=== PATIENT | female | born 1980 | race Caucasian/White ===

== ENCOUNTER 2018-01-02 10:38 | Day surgery (SDC) | payer OTHER ==
[2018-01-02] MEDS ORDERED: LACTATED RINGERS 1,000 ML IV ONE (11:22)
[2018-01-02 11:43] LABS: HCG UR QUAL NEGATIVE
[2018-01-02] MEDS ORDERED: fentaNYL 100 MCG/2 ML VIAL IVP ONE (11:46)
[2018-01-02] MEDS ORDERED: MIDAZOLAM 2 MG/2 ML VIAL IVP ONE (11:46)
[2018-01-02 13:06] VITALS: BP 102/47
--- NOTE | 2018-01-02 14:58 | PROCEDURE REPORT ---
DATE OF SERVICE: 01/02/2018 Physician: Dionicio Yanez MD PROCEDURE PERFORMED: Colonoscopy . ENDOSCOPIST: Dionicio Yanez MD PREMEDICATIONS 1. Fentanyl 150 mcg. 2. Versed 8 mg IV titration. TOTAL SEDATION TIME: 20 minutes. DESCRIPTION: After informed consent was obtained, the patient was placed in left lateral decubitus position. The video colonoscope was introduced through the rectum and slowly advanced to the cecum. On slow withdrawal, mucosa was carefully examined. The scope was removed. The patient tolerated the procedure well. BLOOD LOSS: None. COMPLICATIONS: None. FINDINGS 1. [id number] internal hemorrhoids seen on retroflexion. 2. Quite tortuous colon. 3. Otherwise negative colonoscopy to cecum. The patient will merely monitor her hematochezia, but I think it is all from internal hemorrhoids. She will try to keep her stools soft and easy to pass. She will call if she needs any additional help. TD: 01/02/2018 14:56
== END 2018-01-02 10:39 | disposition home or self-care (01) ==
LOC: SDS 10:38
PROVIDERS: ATTEND Internal Medicine
PROC: 0DJD8ZZ Inspection of Lower Intestinal Tract, Via Natural or Artificial Opening Endoscopic (ICD-10-PCS; principal; 2018-01-02 12:00)
DX: K92.1 Melena (principal); K64.8 Other hemorrhoids
CPT/HCPCS: 45378; 81025; J7120

== ENCOUNTER 2019-12-15 09:55 | Outpatient (CLI) | payer OTHER ==
--- NOTE | 2019-12-15 11:21 | SLEEP CARE CONSULTATION ---
Information from patient questionnaire entered by Candi Bruner. I have reviewed and concur with the information entered by Candi Bruner. This document represents the service I personally performed and the decisions made by me, Chapin Vasquez MD, [facility]. History of Present Illness Reason for Visit: New patient Chief Complaint: reports: Insomnia, Unrefreshed sleep, Snoring, Excessive daytime sleepiness, Observed pauses in breathing, Fatigue, Frequent awakenings at night Duration of Symptoms: over a year Usual bedtime: [id number] Time it takes to fall asleep: 15-20 minutes/ a book Snores at night: Yes Observed to quit breathing while asleep: Yes Sleeps alone due to snoring: No Number of times waking at night: 2-3 Reasons for waking at night: reports: Snoring, Bathroom Toss, Turn, or Twitch while sleeping: No Recalls having dreams: No Usually gets out of bed at: 0500 workday, 0700 weekend Feels refreshed in the morning: No Morning headache: No Sleepy or fatigued during the day: Yes Ever fallen asleep while driving: No Takes day naps: Yes Dreams during day naps: No Prior sleep studies: No Additional HPI information: I had the pleasure of seeing Ms. Griffin today regarding the possibility of her having a sleep disorder. As you know, she is a 39 year old lady who complains of loud snore, observed apneas, frequent awakenings, unrefreshed sleep, persistent fatigue, and excessive daytime sleepiness for the past year. The patient tells me that she normally goes to bed around 9 - 10 pm, and it takes her approximately 15 - 20 minutes to fall asleep. She has been told that she snores loudly and irregularly at night. She has also been observed to stop breathing in her sleep. Her spouse can still sleep in the same bed. She can recall waking up on the average of 2 - 3 times during the night. Most of the time she wakes up because of having to use the bathroom. She has awakened occasionally because of her own snoring, choking, and having to gasp for air. There is not a lot of tossing and turning in her sleep. No somniloquy (sleep talking) or somnambulism (sleep walking). Generally there is no recollection of dreams. In the morning she usually gets up out of the bed around 5 - 7 a.m. not feeling refreshed nor rested. She usually does not have a morning headache. During the day she complains of feeling sleepy and fatigued. Her score on [place] Sleepiness Scale is 15 out of 24. She has never fallen asleep while driving nor has had any accident due to sleepiness. She usually takes naps during the day. Upon falling asleep during the day she denies having vivid dreams. She has never had sleep paralysis, experienced cataplexy but reports symptoms of restless leg syndrome. She also reports having impaired concentration during the day. Subjective Initial [place] Sleepiness Scale score: 15 Past Medical History Past Medical History: reports: Anxiety, Depression, Other (essential tremors) Social History The patient's occupation is active . Patient is and lives in [place]. Have you smoked in the past 12 months: Yes Cigarettes per day (20/pack): 7 (1/3) Years of smokin Smoking Pack Years: 0.3 Alcohol use: Yes Alcohol amount and frequency: on occassion Caffeine use: Yes Caffeine amount and frequency: 2-3 cups/day Family History Family history of sleep disordered breathing: Yes Allergies and Home Medications Drug allergies reviewed: Yes (NKDA) Home medication list reviewed: Yes (fluoxetine, propranolo, topiramate) Review of Systems Weight gain over past 5 years: 20-30 Cardiovascular: reports: palpitations Respiratory: reports: shortness of breath Gastrointestinal: reports: heartburn, abdominal pain Urinary: reports: incontinence Neurological: reports: gait or balance problems, other (tremors) Psychiatric: reports: anxiety, depression Ear/Nose/Throat: reports: wisdom teeth removed Endocrine: reports: sluggishness, too hot or cold, unexplained weakness Musculoskeletal: reports: joint pain, neck pain, back pain Immunologic: denies: sneezing, rash, itching, allergies to food or environment, other Physical Exam Vital signs obtained and entered by: Dr. Vasquez Blood Pressure: 104/68 Cuff size: regular Heart Rate: 63 O2 Saturation: 98 Height: 5 ft 4 in Weight: 182 lb Body Mass Index: 31.2 BMI Classification: Obese Neck circumference: 14 Mood/affect: normal HEENT: No craniofacial malformation Nostrils: patent to airflow Turbinates: normal Septum: midline Mouth and throat: narrow oropharynx Soft palate: long Hard palate: normal Uvula: normal Uvula visualization: 50% Mallampati Class II Tongue: normal in size Tonsils: small Chin and jaw: normal size and position Neck: normal w/o lymphadenopathy or thyromegaly Heart: regular rate and rhythm Lungs: clear bilaterally Abdomen: soft, non-tender Extremities: no edema or clubbing Neurologic: intact, no focal deficits Impression and Plan IMPRESSION: 1. Obstructive Sleep Apnea-Hypopnea Syndrome, as suggested by history of loud and irregular snoring, observed cessation of breath while asleep, frequent awakenings during the night, unrefreshed sleep, cognitive impairment, and daytime hypersomnolence. Narrow oropharynx and obesity are common predisposing factors for obstructive sleep apnea-hypopnea syndrome. Pathophysiology of sleep-disordered breathing was discussed. I recommend proceeding to polysomnography to confirm the diagnosis and to assess severity. I informed the patient of what the sleep studies involve and after some discussion, she agreed to proceed. Plan: 1. Schedule an in-laboratory polysomnography. 2. Avoid long distance driving or when feeling sleepy. 3. Avoid alcohol, sedative and muscle relaxant around bedtime. 4. Attempt to lose weight. 5. Return in 1 to 2 weeks after the study to discuss results and initiate therapy I spent 100% of this visit face to face with the patient with greater than 50% of this was spent time counseling the patient and coordination of care.
[2019-12-15 11:22] VITALS: BP 104/68
== END 2019-12-15 09:56 | disposition home or self-care (01) ==
LOC: SC 09:55
PROVIDERS: ATTEND Internal Medicine Pulmonary Disease
DX: R06.83 Snoring (principal); R06.81 Apnea, not elsewhere classified; G47.8 Other sleep disorders; R41.89 Other symptoms and signs involving cognitive functions and awareness; G47.10 Hypersomnia, unspecified; E66.9 Obesity, unspecified; Z68.31 Body mass index [BMI] 31.0-31.9, adult
CPT/HCPCS: 99203; 99212

== ENCOUNTER 2020-01-01 19:40 | Outpatient (CLI) | payer OTHER | END 2020-01-01 19:41 | disposition home or self-care (01) | LOC: SC 19:40 | PROVIDERS: ATTEND Internal Medicine Pulmonary Disease | DX: R06.83 Snoring (principal); G47.63 Sleep related bruxism; G47.10 Hypersomnia, unspecified; R06.81 Apnea, not elsewhere classified | CPT/HCPCS: 95810 ==

== ENCOUNTER 2020-02-09 13:54 | Outpatient (CLI) | payer OTHER ==
--- NOTE | 2020-02-09 11:32 | SLEEP CARE CONSULTATION ---
Information from patient questionnaire entered by Candi Bruner. I have reviewed and concur with the information entered by Candi Bruner. This document represents the service I personally performed and the decisions made by me, Chapin Vasquez MD, [facility]. History of Present Illness Service Date and Time: 02/09/2020 1100 Initial [place] Sleepiness Scale score: 15 Additional HPI information: To minimize the risk of COVID-19 exposure, the patient has requested and consented to this video telemedicine visit. The patient also agrees to having her insurance billed. HPI: Ms. Griffin was called for follow up of the sleep study she had on 01/01/2020. The polysomnography showed that the patient had normal sleep efficiency. The sleep architecture was normal as well. Respiratory monitoring showed no significant sleep disordered breathing (AHI = 1.3) or hypoxia (zora oxygen saturation of 90%). The patient slept mostly supine (supine AHI = 1.8; non- supine = 0.00). Snore was moderate to loud in intensity. There was no significant periodic leg movement of sleep. Cardiac rhythm was normal sinus rhythm without significant arrhythmia. The patient had bruxism. The patient was informed of these findings. I explained to her that the sleep study was normal. Her main complaint is fatigue. Allergies and Home Medications Drug allergies reviewed: Yes Home medication list reviewed: Yes Review of Systems Review of systems same as previous: Yes Physical Exam Height: 5 ft 4 in Impression and Plan IMPRESSION: 1. Primary Snore (ICD-10 R06.83), light to loud, but no significant sleep disordered breathing. Not treatment at this time. 2. Fatigue, not explained by sleep disorders. She does have history of depression. Further workup will be deferred to her primary care provider. PLAN: 1. Return to the sleep clinic on as needed basis. Visit Type: Telehealth Video Video Type: [facility] Location of Provider: Home Patient agrees and consents to this telehealth visit type: Yes Time Spent with Patient (minutes): 15 Provider Statement: I spent 100% of the Telehealth Video Call with the patient with greater than 50% spent counseling the patient and coordination of care.
== END 2020-02-09 13:55 | disposition home or self-care (01) ==
LOC: SC 13:54
PROVIDERS: ATTEND Internal Medicine Pulmonary Disease
DX: R06.83 Snoring (principal); G47.10 Hypersomnia, unspecified; G47.8 Other sleep disorders; R06.81 Apnea, not elsewhere classified; R53.83 Other fatigue
CPT/HCPCS: 99212; 99213

== ENCOUNTER 2020-03-23 16:51 | Outpatient (CLI) | payer OTHER ==
--- NOTE | 2020-03-24 04:30 | MRI Report ---
Reason: PARAESTHESIA OF SKIN Procedure Date: 03/23/2020 Accession Number: [id number] / [id number] Procedure: MRI - Cervical Spine W/O CPT Code: Final Report FULL RESULT: EXAM: MRI CERVICAL SPINE WITHOUT CONTRAST EXAM DATE: 03/23/2020 06:01 PM. CLINICAL HISTORY: Chronic bilateral arm and hand numbness. COMPARISONS: None. TECHNIQUE: Multiplanar, multisequence T1-weighted and fluid-sensitive sequences of the cervical spine without contrast. Other: None. FINDINGS: Neurologic Structures: The visualized posterior fossa structures are unremarkable. No signal abnormality in the visualized spinal cord. Alignment: Retrolisthesis at C5-C6 measures 1-2 mm. Bone Marrow: No gross fractures or bone lesions. No marrow edema. Interspace Levels/Facets: C1-C2: Unremarkable. C2-C3: Unremarkable. C3-C4: Left-sided facet arthropathy results in mild left foraminal narrowing. The spinal canal and right foramen are patent. C4-C5: A minimal disk bulge is present resulting in mild left foraminal narrowing. The spinal canal and right foramen are patent. C5-C6: A posterior disk osteophyte complex results in mild spinal canal stenosis. There is mild bilateral foraminal narrowing due to uncovertebral hypertrophy. C6-C7: Mild bilateral uncovertebral hypertrophy is present without spinal canal or foraminal stenosis. A minimal central protrusion is also seen. C7-T1: Unremarkable. Musculature: Normal. No edema or fatty atrophy. Other: The paravertebral and prevertebral soft tissues are normal. IMPRESSION: 1. Normal cervical spinal cord signal intensity. 2. No abnormal bone marrow edema. 3. Mild degenerative changes are noted in the mid cervical spine but there is no high-grade spinal canal or foraminal stenosis. RADIA
== END 2020-03-23 16:52 | disposition home or self-care (01) ==
LOC: DI 16:51
PROVIDERS: ATTEND General Practice
DX: M43.12 Spondylolisthesis, cervical region (principal); M47.812 Spondylosis without myelopathy or radiculopathy, cervical region; M50.321 Other cervical disc degeneration at C4-C5 level; M50.223 Other cervical disc displacement at C6-C7 level; M48.02 Spinal stenosis, cervical region
CPT/HCPCS: 72141

== ENCOUNTER 2020-07-02 15:34 | Outpatient (CLI) | payer OTHER ==
--- NOTE | 2020-07-07 10:01 | Mammography Report ---
BILATERAL DIGITAL SCREENING MAMMOGRAM: 07/02/2020 CLINICAL: Routine screening. Comparison is made to exam dated: 03/20/2019 mammogram - [facility]. The tissue of neeraj th breasts is heterogeneously dense. This may lower the sensitivity of mammography. No significant masses, calcifications, or other findings are seen in either breast. There has been no significant interval change. IMPRESSION: NEGATIVE There is no mammographic evidence of malignancy. A 1 year screening mammogram is recommended. This exam was interpreted at Station ID: [id number]. NOTE: For mammograms, a report in lay terms will be sent to the patient. Approximately 15% of breast malignancies will not be visualized mammographically. In the management of a palpable breast mass, a negative mammogram must not discourage biopsy of a clinically suspicious lesion. Electronically Signed By: Dwight alas/chris:07/06/2020 15:54:16 ACR BI-RADS Category 1: Negative [id number] PARENCHYMAL PATTERN: (D) - The breast(s) demonstrate(s) heterogeneously dense fibroglandular pamela jimenez. BI-RADS CATEGORY: (1) - 1 RECOMMENDATION: (ANNUAL) - Recommend routine annual screening mammography. [id number] 1 year screening LATERALITY: (B)
== END 2020-07-02 15:35 | disposition home or self-care (01) ==
LOC: DI.N 15:34
DX: Z12.31 Encounter for screening mammogram for malignant neoplasm of breast (principal)
CPT/HCPCS: 77067

== ENCOUNTER 2020-09-10 16:55 | Emergency (ER) | payer OTHER ==
--- NOTE | 2020-09-10 17:24 | ED Physician Documentation ---
History of Present Illness - Stated complaint Stated Complaint: RT FINGER INJ - History obtained from History obtained from: Patient - History of Present Illness Timing: How many hours ago (2) Pain level max: 0 Pain level now: 0 - Additonal information Additional information: 40-year-old female presents to the emergency department after smashing her index finger and middle finger in a garage door today. Worse with movement, better with rest. 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, Other HEENT: Other - Present Medications Home Medications: Ambulatory Orders Medication Instructions Recorded Confirmed Bcp 1 DAILY 08/06/15 08/06/15 Fluoxetine HCl [Prozac] 1 DAILY 08/06/15 08/06/15 - Allergies Allergies/Adverse Reactions: Allergies Allergy/AdvReac Type Severity Reaction Status Date / Time No Known Drug Allergies Allergy Verified 09/10/20 17:25 - Social History Does the pt smoke?: No Smoking Status: Never smoker Does the pt drink ETOH?: Yes Does the pt have substance abuse?: No - Immunizations Immunizations are current?: Yes PD ED PE NORMAL - Vitals Vital signs reviewed: Yes - General General: Alert and oriented X 3, No acute distress - HEENT HEENT: Moist mucous membranes - Derm Derm: Warm and dry - Extremities Extremities: Other (R hand - 2nd and 3rd digit mild TTP over the distal aspect, small subungual to the middle digit) - Neuro Neuro: Alert and oriented X 3 Results - Vitals Vitals: Vital Signs - 24 hr 09/10/20 09/10/20 17:06 18:48 Temperature 98.6 C H 36.9 C Heart Rate 49 L 48 L Respiratory 18 16 Rate Blood Pressure 108/76 106/73 O2 Saturation 100 100 Oxygen O2 Source Room air - Rads (name of study) R hand xray Radiology: Prelim report reviewed, EMP read contemporaneously, See rad report (Intact right hand) Procedures - General procedure General procedure: subungual hematoma drained from the distal 3rd digit. electrocautery used. tolerated well. 1% buffered lidocaine used to anesthetize the digit with a digital block. PD MEDICAL DECISION MAKING - ED course Complexity details: reviewed results, re-evaluated patient, considered differential, d/w patient ED course: Subungual hematoma drained. Tolerated well. No findings on xray. Using the hand well. Patient counseled regarding signs and symptoms for which I believe and urgent re-evaluation would be necessary. Patient with good understanding of and agreement to plan and is comfortable going home at this time This document was made in part using voice recognition software. While efforts are made to proofread this document, sound alike and grammatical errors may occur. Departure - Departure Disposition: 01 Home, Self Care Clinical Impression: Subungual hematoma of digit of hand Qualifiers: Encounter type: initial encounter Qualified Code(s): S60.10XA - Contusion of unspecified finger with damage to nail, initial encounter Crush injury to finger Qualifiers: Encounter type: initial encounter Qualified Code(s): S67.10XA - Crushing injury of unspecified finger(s), initial encounter Condition: Good Instructions: ED Crush Injury Finger No Fx, ED Hematoma Subungual Follow-Up: Murali Clarek MD [Primary Care Provider] - Within 1 week Comments: Follow-up with your doctor in 1 week for recheck. Return if you worsen. Discharge Date/Time: 09/10/20 19:02
--- NOTE | 2020-09-10 18:14 | XRAY Report ---
PROCEDURE: Hand 3 View RT INDICATIONS: R hand crush injury TECHNIQUE: 3 views of the hand(s) acquired. COMPARISON: None FINDINGS: Bones: No fractures or dislocations. No suspicious bony lesions. Soft tissues: No suspicious soft tissue calcifications. IMPRESSION: Intact right hand. No visible fracture. Reviewed by: Aiyana Mckeon MD on 09/10/2020 6:12 PM PST Approved by: Aiyana Mckeon MD on 09/10/2020 6:12 PM PST Station ID: [id number]
[2020-09-10] MEDS ORDERED: BUFFERED LIDOCAINE 10 ML SYRINGE SUBQ STA (18:18)
[2020-09-10 18:49] VITALS: BP 106/73
== END 2020-09-10 19:02 | disposition home or self-care (01) ==
LOC: ED 16:55
DX: S60.131A Contusion of right middle finger with damage to nail, initial encounter (principal); S67.190A Crushing injury of right index finger, initial encounter; W23.0XXA Caught, crushed, jammed, or pinched between moving objects, initial encounter
CPT/HCPCS: 11740; 99283

== ENCOUNTER 2023-11-20 13:28 | Emergency (ER) | payer OTHER ==
[2023-11-20 13:42] VITALS: O2SAT 100
--- NOTE | 2023-11-20 13:57 | ED Physician Documentation ---
History of Present Illness - Stated complaint Stated Complaint: DOG BITES/HANDS - Chief complaint Chief Complaint: Laceration - History obtained from History obtained from: Patient - History of Present Illness Timing: Today Pain level max: 4 Pain level now: 4 - Additonal information Additional information: Patient is a 43-year-old female who presents to the emergency department with dog bites to both hands. She has a laceration to the dorsum of the right hand. There are 2 small puncture wounds on the left thumb. She believes her tetanus shot is up-to-date. Worse with movement, better with rest. No allergies to medications. No fevers. No chills. No weakness. No numbness or tingling. 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 HEENT: Other - Present Medications Home Medications: Ambulatory Orders Medication Instructions Recorded Confirmed Amox/Clav 875/125 [Augmentin] 1 tab PO Q12H #14 tablet 11/20/23 FLUoxetine [PROzac] 10 mg PO DAILY 11/20/23 11/20/23 Fluoxetine HCl [Prozac] 20 mg PO DAILY 11/20/23 11/20/23 Primidone 50 mg PO HS 11/20/23 11/20/23 Propranolol [Inderal] 40 mg PO BID 11/20/23 11/20/23 Topiramate 50 mg PO BID 11/20/23 11/20/23 buPROPion HCL [Wellbutrin Xl] 300 mg PO DAILY 11/20/23 11/20/23 - Allergies Allergies/Adverse Reactions: Allergies Allergy/AdvReac Type Severity Reaction Status Date / Time No Known Drug Allergies Allergy Verified 11/20/23 13:30 - Social History Does the pt smoke?: No Smoking Status: Never smoker Does the pt drink ETOH?: Yes Does the pt have substance abuse?: No - Immunizations Immunizations are current?: Yes - POLST Patient has POLST: No PD ED PE NORMAL - Vitals Vital signs reviewed: Yes - General General: Alert and oriented X 3, No acute distress - HEENT HEENT: Moist mucous membranes - Derm Derm: Warm and dry - Extremities Extremities: Other (laceration dorsum of the R hand, 1cm. no tendon involvement. NVI. punctures of the L thumb, NVI.) - Neuro Neuro: Alert and oriented X 3 - Psych Psych: Normal mood, Normal affect Results - Vitals Vitals: Vital Signs - 24 hr 11/20/23 11/20/23 13:30 14:44 Temperature 36.2 C L 36.5 C Heart Rate 61 60 Respiratory 16 16 Rate Blood Pressure 116/68 114/66 O2 Saturation 100 100 Oxygen O2 Source Room air Procedures - Laceration (location) R hand dorsum Length in cm: 1 Wound type: Linear, Into subcut fat, Clean Neurovascular status: Sensory intact, Motor intact, Vascular intact Tendon involvement: Tendon intact Anesthesia: Lidocaine 1% Wound preparation: Chlorhexadine, Irrigated copiously NS, Wound explored Skin layer closure: Nylon, Interrupted, Size #-0 - enter number (4), Sutures - enter # (1) Other: Patient tolerated well, No complications, Neurovascular intact, Dressing applied, Tetanus UTD PD Medical Decision Making - ED course Complexity details: considered differential, d/w patient, d/w family ED course: Patient status post dog bites to both hands, the left thumb bites do not require any suturing. There is a gaping 1 cm wound to the dorsum of the right hand. No bony tenderness. No deformity. No indication for x-ray. A suture was placed. Will place on Augmentin for home. She states her tetanus shot is up-to-date. Patient counseled regarding signs and symptoms for which I believe and urgent re-evaluation would be necessary. Patient with good understanding of and agreement to plan and is comfortable going home at this time This document was made in part using voice recognition software. While efforts are made to proofread this document, sound alike and grammatical errors may occur. Departure - Departure Disposition: 01 Home, Self Care Clinical Impression: Dog bite of hand Qualifiers: Encounter type: initial encounter Laterality: unspecified laterality Qualified Code(s): S61.459A - Open bite of unspecified hand, initial encounter Condition: Good Instructions: ED Bite Dog, ED Laceration Hand Follow-Up: your,doctor in 1 week for stitch removal [Other] Prescriptions: Amox/Clav 875/125 [Augmentin] 1 tab PO Q12H #14 tablet Comments: Your prescription was sent to [facility] in [place]. Take all antibiotics until gone. Return if you notice redness, swelling or drainage from the wound. Your sutures should be removed in about a week with your PCP. Forms: PCP List Discharge Date/Time: 11/20/23 14:44
[2023-11-20] MEDS ORDERED: BACITRACIN ZINC OINT 1 PACKET TOP STA (14:20)
[2023-11-20 14:48] VITALS: BP 114/66
== END 2023-11-20 14:44 | disposition home or self-care (01) ==
LOC: ED 13:28
DX: S61.051A Open bite of right thumb without damage to nail, initial encounter (principal); W54.0XXA Bitten by dog, initial encounter
CPT/HCPCS: 12001; 99282; A9270

== ENCOUNTER 2024-01-14 10:57 | Day surgery (SDC) | payer OTHER ==
[2024-01-14] MEDS: LACTATED RINGERS 1,000 ML IV ONE (11:09)
[2024-01-14 11:28] LABS: HCG UR QUAL NEGATIVE
--- NOTE | 2024-01-14 11:47 | ANESTHESIA ---
Pre-Anesthesia VS, & Labs - Diagnosis screening - Procedure colonoscopy Height: 5 ft 5 in Weight (kg): 76.5 kg Body Mass Index: 28.0 BMI Classification: Overweight - NPO Other (prep as directed) - Is Patient ?: No Home Medications and Allergies Fluoxetine HCl [Prozac] 30 mg PO DAILY 11/20/23 Primidone 50 mg PO HS 11/20/23 Propranolol [Inderal] 40 mg PO BID 11/20/23 Topiramate 50 mg PO BID 11/20/23 buPROPion HCL [Wellbutrin Xl] 300 mg PO DAILY 11/20/23 Allergies/Adverse Reactions: Allergies Allergy/AdvReac Type Severity Reaction Status Date / Time No Known Drug Allergies Allergy Verified 01/14/24 11:32 Anes History & Medical History - Anesthetic History Anesthesia Complications: reports: No previous complications - Medical History Cardiovascular: reports: High cholesterol Pulmonary: reports: None Gastrointestinal: reports: None Urinary: reports: Incontinence Neuro: reports: Tremors (takes propranolol for) Musculoskeletal: reports: None Endocrine/Autoimmune: reports: None Skin: reports: Eczema Smoking Status: Never smoker - Surgical History Eyes Ears Nose Throat (EENT): reports: Other Gynecologic: reports: Dilation and currettage, Other Exam General: Alert, Oriented x3 Neck Mobility: Normal Mallampati classification: I Respiratory: Lungs clear Cardiovascular: Regular rate Plan Anesthesia Type: Total IV Consent for Procedure(s) Verified and Reviewed: Yes Code Status: Attempt Resuscitation ASA classification: 2-Mild systemic disease Is this case an emergency?: No
[2024-01-14] MEDS ORDERED: PROPOFOL 500 MG/50 ML 500 MG/50 ML VIAL ONE (11:59)
[2024-01-14] MEDS ORDERED: LIDOCAINE-PF 2% 10 ML AMP SUBQ ONE (12:01)
[2024-01-14] MEDS ORDERED: MIDAZOLAM 2 MG/2 ML VIAL ONE (12:07)
[2024-01-14] MEDS: LACTATED RINGERS 100 ML IV ONE (12:33)
[2024-01-14 13:14] VITALS: BP 92/53; O2SAT 98
--- NOTE | 2024-01-14 15:14 | ANESTHESIA POST OP EVALUATION ---
Anesthesia Post Eval - Post Anesthesia Eval Vitals: Last Vital Signs Temp 36.2 C L 01/14/24 13:07 Pulse 70 01/14/24 13:07 Resp 16 01/14/24 13:07 BP 92/53 L 01/14/24 13:07 Pulse Ox 98 01/14/24 13:07 O2 Flow Rate CV Function Including HR & BP: Stable Pain Control: Satisfactory Nausea & Vomiting: Negative Mental Status: Baseline Respiratory Status: Airway Patent Hydration Status: Satisfactory Anesthesia Complications: None
== END 2024-01-14 10:58 | disposition home or self-care (01) ==
LOC: SDS 10:57
PROVIDERS: ATTEND Surgery
DX: Z12.11 Encounter for screening for malignant neoplasm of colon (principal); K64.1 Second degree hemorrhoids; F17.290 Nicotine dependence, other tobacco product, uncomplicated
CPT/HCPCS: 45378; 81025; J7120

== ENCOUNTER 2024-04-04 07:53 | Outpatient (CLI) | payer OTHER ==
--- NOTE | 2024-04-04 09:42 | Ultrasound Report ---
PROCEDURE: Pelvic w/Transvaginal INDICATIONS: PELVIC PAIN TECHNIQUE: Real-time scanning was performed of the pelvic organs, with image documentation. Additional endovagi nal scanning was necessary due to incomplete visualization of the adnexal and endometrial structures by transabdominal scanning. COMPARISON: None. FINDINGS: Uterus: Uterus is anteverted and normal in size at 8.3 x 5.4 x 3.9 cm. The myometrium is heterogene ous. The endometrium measures 6 mm in combined thickness. IUD centered in the endometrial canal. Se veral nabothian cysts. No fibroids demonstrated. Ovaries: The right ovary measures 2.5 x 1.8 x 1.6 cm, with a calculated ovarian volume of 4 cc. The left ovary measures 4.1 x 3.4 x 3.3 cm, with a calculated ovarian volume of 24 cc. The ovaries have a normal sonographic appearance. Blood flow seen in both ovaries. Less than 12 follicles can be seen in each ovary. No adnexal masses are seen. Anechoic left ovarian cyst measuring 3.3 x 2.9 x 2.3 cm. Other: No pathologic free abdominal or pelvic fluid. IMPRESSION: 1. Simple left ovarian cyst measuring 3.3 cm. 2. IUD is centered in the endometrial canal. Endometrium measures 6 mm. Reviewed by: Dipesh Moyer MD on 04/04/2024 9:41 AM PDT Approved by: Dipesh Moyer MD on 04/04/2024 9:41 AM PDT Station ID: [id number]
== END 2024-04-04 07:54 | disposition home or self-care (01) ==
LOC: DI 07:53
PROVIDERS: ATTEND Nurse Practitioner Family
DX: N83.292 Other ovarian cyst, left side (principal); Z97.5 Presence of (intrauterine) contraceptive device; N92.0 Excessive and frequent menstruation with regular cycle